=== PATIENT | male | born 1965 | race Caucasian/White ===

== ENCOUNTER → 2017-12-14 14:01 | Outpatient (CLI) | payer MEDICARE | END | disposition home or self-care (01) | LOC: D.RAD 14:01 | DX: M54.5 Low back pain (principal); W19.XXXA Unspecified fall, initial encounter ==

== ENCOUNTER 2019-07-31 13:11 | Inpatient (IN) | payer MEDICARE ==
[~2019-07-31] VITALS: Ht 175.3 cm; Wt 95.3 kg
[2019-07-31] MEDS ORDERED: LASIX40 MG PO (13:19)
[2019-07-31] MEDS ORDERED: GLUCOPHAGE1000 MG PO (13:19)
[2019-07-31] MEDS ORDERED: LEVOXYL100 MCG PO (13:20)
[2019-07-31] MEDS ORDERED: NEURONTIN600 MG PO (13:20)
[2019-07-31] MEDS ORDERED: ROPINIROLE HCL1 MG PO (13:20)
[2019-07-31] MEDS ORDERED: COUMADIN2 MG PO (13:20)
[2019-07-31] MEDS ORDERED: GLIPIZIDE10 MG PO (13:21)
[2019-07-31 13:57] LABS: BASOPHILS 0.1 % (0-2); EOSINOPHILS 0.3 % (0-7); HEMATOCRIT 46.1 % (42.0-54.0); HEMOGLOBIN 16.2 g/dL (13.5-17.5); IMMATURE GRANULOCYTES 0.4 % (0-5); MCH 29.7 pg (26.0-34.0); MCHC 35.1 g/dL (31.0-37.0); MCV 84.6 fL (80.0-100.0); MEAN PLATELET VOLUME 9.1 fL (7.4-10.4); MONOCYTES 7.4 % (2-11); NEUTROPHILS 81.8 % (40-80); PLATELET COUNT 169 10x3/uL (130-400); RBC 5.45 10x6/uL (4.20-6.10); RDW 13.7 % (11.5-14.5); WBC 10.6 10x3/uL (4.8-10.8)
[2019-07-31 14:07] LABS: APTT 86.2 SECONDS (22.8-39.4); CALC OSMOLALITY 282 mosm/kg (275-300); CHLORIDE - SERUM 101 mmol/L (98-107); CREATININE - SERUM 1.1 mg/dL (0.6-1.3); GLUCOSE 349 mg/dL (74-106); POTASSIUM - SERUM 4.5 mmol/L (3.5-5.1); SODIUM 135 mmol/L (136-145); UREA NITROGEN 9 mg/dL (7-18); eGFR NON AFRICAN AMERICAN 74 mL/min (90-120)
[2019-07-31 14:17] LABS: INR 6.25 (0.85-1.17); PROTIME 53.8 SECONDS (11.6-15.0)
[2019-07-31 14:24] LABS: ALBUMIN 2.6 g/dL (3.4-5.0); ALKALINE PHOSPHATASE 105 U/L (30-120); ALT (SGPT) 7 U/L (10-68); BILIRUBIN - TOTAL 0.58 mg/dL (0.2-1.3); CKMB 0.2 U/L (0.0-3.6); CREATINE KINASE 17 UL (21-232); PRO BNP 67 pg/mL (0-125)
[2019-07-31 14:28] LABS: TROPONIN-I < 0.017 ng/mL (0.000-0.060)
--- NOTE | 2019-07-31 16:01 | NUR ---
PT TRANSPORTED TO CT AT THIS TIME.
[2019-07-31 16:53] VITALS: BP 137/66
--- NOTE | 2019-07-31 18:43 | NUR ---
U\S AT BEDSIDE AT THIS TIME.
[2019-07-31 18:53] LABS: BILIRUBIN NEGATIVE (NEGATIVE); GLUCOSE 1000 mg/dL (NEGATIVE); KETONE LARGE mg/dL (NEGATIVE); NITRITE NEGATIVE (NEGATIVE); UROBILINOGEN NORMAL (NORMAL)
[2019-07-31 18:54] LABS: BACTERIA FEW /hpf (NEGATIVE); EPITHELIAL CELLS OCC /hpf (0-5); GRANULAR CAST OCC /lpf (NONE SEEN); RED CELLS - URINE 0-5 /hpf (0-5); WHITE CELLS - URINE 0-5 /hpf (NEGATIVE)
[2019-07-31 18:57] LABS: UDS - AMPHET NEGATIVE QUAL (NEGATIVE); UDS - BARB NEGATIVE QUAL (NEGATIVE); UDS - BENZO NEGATIVE QUAL (NEGATIVE); UDS - COCAINE NEGATIVE QUAL (NEGATIVE); UDS - OPIATE NEGATIVE QUAL (NEGATIVE); UDS - PCP NEGATIVE QUAL (NEGATIVE); UDS - THC NEGATIVE QUAL (NEGATIVE)
[2019-07-31 19:05] VITALS: BP 115/73
--- NOTE | 2019-07-31 19:43 | NUR ---
ROCEPHIN STOPPED AT THIS TIME.
[2019-07-31 20:00] VITALS: BP 118/57
--- NOTE | 2019-07-31 20:00 | NUR ---
RECEIVED PT TO FLOOR FROM ER VIA STRETCHER. PT AMBULATED, UNSTEADILY, FROM STRETCHER TO BED. DYSPENIC ON EXERTION. LUNG SOUNDS ARE DIMINISHED. 2L/NC. REVIEWED HISTORY AND HOME MEDS. PT C/O OF NAUSEA. GAVE ZOFRAN. SET UP IV PUMP TO INFUSE IVPB AZITHROMYCIN, ROCEPHIN WAS GIVEN IN ER. PLACED SCD'S ON PT. PT ON WAITING LIST FOR TELEMETRY. NO OTHER NEEDS. WILL CONTINUE TO MONITOR.
[2019-07-31] MEDS ORDERED: LISINOPRIL5 MG PO (20:08)
[2019-07-31] MEDS ORDERED: AMERGE1 MG PO (20:14)
[2019-07-31] MEDS ORDERED: ALDACTONE25 MG PO (20:17)
[2019-07-31] MEDS ORDERED: PROTONIX40 MG PO (20:18)
[2019-07-31 23:33] VITALS: BP 118/57; BMI 31.0
[2019-08-01] VITALS: BP 95/62
[2019-08-01 04:00] VITALS: BP 129/80
--- NOTE | 2019-08-01 07:00 | NUR ---
LABS BEING DRAWN. PATIENT IS WITHOUT DISTRESS.CALL LIGHT IN REACH
[2019-08-01 07:01] LABS: BASOPHILS 0.1 % (0-2); EOSINOPHILS 0.2 % (0-7); HEMATOCRIT 39.1 % (42.0-54.0); HEMOGLOBIN 13.6 g/dL (13.5-17.5); IMMATURE GRANULOCYTES 0.2 % (0-5); LYMPHOCYTES 20.2 % (15-50); MCH 29.2 pg (26.0-34.0); MCHC 34.8 g/dL (31.0-37.0); MCV 83.9 fL (80.0-100.0); MONOCYTES 10.4 % (2-11); NEUTROPHILS 68.9 % (40-80); PLATELET COUNT 172 10x3/uL (130-400); RBC 4.66 10x6/uL (4.20-6.10); RDW 13.3 % (11.5-14.5); WBC 8.2 10x3/uL (4.8-10.8)
[2019-08-01 07:43] LABS: CALC OSMOLALITY 290 mosm/kg (275-300); CALCIUM 7.9 mg/dL (8.5-10.1); CARBON DIOXIDE 24.1 mmol/L (21.0-32.0); CHLORIDE - SERUM 105 mmol/L (98-107); GLUCOSE 310 mg/dL (74-106); POTASSIUM - SERUM 4.4 mmol/L (3.5-5.1); SODIUM 138 mmol/L (136-145); eGFR NON AFRICAN AMERICAN 83 mL/min (90-120)
[2019-08-01 07:44] LABS: UREA NITROGEN 20 mg/dL (7-18)
[2019-08-01 08:39] VITALS: BP 121/77
--- NOTE | 2019-08-01 09:00 | NUR ---
ASSESSMENT PER FLOW SHEET. PATIENT IS WITHOUT DISTRESS.DENIES NEEDS.CALL LIGHT IN REACH
[2019-08-01 12:53] VITALS: BP 132/76
[2019-08-01 13:37] VITALS: Ht 175.3 cm; Wt 95.3 kg
[2019-08-01 16:01] VITALS: BP 132/74
[2019-08-01 19:10] LABS: INR 3.81 (0.85-1.17); PROTIME 36.8 SECONDS (11.6-15.0)
--- NOTE | 2019-08-01 19:28 | NUR ---
PT SITTING UP IN BED WITH EYES OPEN CURRENTLY RCVING BREATHING TREATMENT. NO S/S OF DISTRESS NOTED AT THIS TIME. IV LOCATED TO LEFT AC CURRENTLY SL. DENIES NEEDS AT THIS TIME, WILL CONT TO MONITOR.
[2019-08-01 20:00] VITALS: BP 126/64
--- NOTE | 2019-08-01 23:30 | NUR ---
PT COMPLAINS OF CHRONIC BACK PAIN AND DIFFICULTY GETTING COMFORTABLE. EGG CRATE MATTRESS LAID OVER BED, PT REPORTS RELIEF. WILL CONTINUE TO MONITOR.
[2019-08-02] VITALS: BP 107/71
[2019-08-02 04:00] VITALS: BP 118/70
--- NOTE | 2019-08-02 04:00 | NUR ---
MONITOR STATION REPORTS NO AVAILABLE TELEMETRY FOR THIS PT.
[2019-08-02 07:19] LABS: BASOPHILS 0.1 % (0-2); EOSINOPHILS 0 % (0-7); HEMATOCRIT 37.9 % (42.0-54.0); HEMOGLOBIN 13.2 g/dL (13.5-17.5); IMMATURE GRANULOCYTES 0.5 % (0-5); LYMPHOCYTES 13.6 % (15-50); MCH 29.1 pg (26.0-34.0); MCHC 34.8 g/dL (31.0-37.0); MCV 83.7 fL (80.0-100.0); MEAN PLATELET VOLUME 9.5 fL (7.4-10.4); MONOCYTES 2.8 % (2-11); RBC 4.53 10x6/uL (4.20-6.10); RDW 13.2 % (11.5-14.5); WBC 7.5 10x3/uL (4.8-10.8)
[2019-08-02 07:32] LABS: ALBUMIN 2.7 g/dL (3.4-5.0); ANION GAP 17.3 mmol/L (8-16); BILIRUBIN - TOTAL 0.46 mg/dL (0.2-1.3); CALCIUM 8.5 mg/dL (8.5-10.1); CARBON DIOXIDE 24.2 mmol/L (21.0-32.0); CREATININE - SERUM 1.1 mg/dL (0.6-1.3); POTASSIUM - SERUM 4.5 mmol/L (3.5-5.1); PROTEIN - SERUM 6.4 g/dL (6.4-8.2)
[2019-08-02 07:44] LABS: PLATELET COUNT 247 10x3/uL (130-400)
[2019-08-02 08:00] LABS: INR 2.81 (0.85-1.17); PROTIME 29.1 SECONDS (11.6-15.0)
[2019-08-02 08:41] VITALS: BP 113/73
[2019-08-02 13:03] VITALS: BP 110/65
[2019-08-02] MEDS ORDERED: PREDNISONE10 MG PO (13:05)
[2019-08-02] MEDS ORDERED: FLUTICASONE PRO16 GM NASAL (13:05)
[2019-08-02] MEDS ORDERED: MUCINEX DM ER1 EAC1 PO (13:05)
[2019-08-02] MEDS ORDERED: Tessalon Perle PO (13:05)
[2019-08-02] MEDS ORDERED: OMNICEF300 MG PO (13:05)
[2019-08-02] MEDS ORDERED: FLORAJEN3 CAPS460 MG PO (13:05)
[2019-08-02] MEDS ORDERED: ALBUTEROL2.5 MG/3 M INH (13:05)
[2019-08-02] MEDS ORDERED: ZITHROMAX500 MG PO (13:05)
[2019-08-02] MEDS ORDERED: SINGULAIR10 MG PO (13:05)
[2019-08-02] MEDS ORDERED: VENTOLIN HFA [SP8 GM INH (14:03)
--- NOTE | 2019-08-02 14:07 | MORECARE ---
CASE MANAGEMENT DISCHARGE SUMMARY PATIENT: JEANETTE ALEMAN UNIT: [id number] ADM DATE: 07/31/19 AGE: 54 : 67 SEX: M ROOM/BED: D.2224 AUTHOR: RANJAN BUITRAGO PHYSICIAN: REFERRING PHYSICIAN: TERRANCE VASQUEZ MD DATE OF SERVICE: 08/02/19 Discharge Plan Patient Name: JEANETTE ALEMAN [facility] [facility] 1965 Planned Disposition: Home Anticipated Discharge Date: 08/02/19 Discharge Date: Expected LOS: 2 Initial Reviewer: [id number] Initial Review Date: 07/31/2019 Generated: 08/02/19 3:06 pm DCPIA - Discharge Planning Initial Assessment Updated by [email or web address]: Mary Rojas on 08/02/19 2:05 pm * Is the patient Alert and Oriented? Yes * How many steps to enter\exit or inside your home? 2/0 * PCP Dr. Jase Fontenot * Pharmacy [facility] * Preadmission Environment Home with Family * ADLs Independent * Equipment None * List name and contact numbers for known caregivers / representatives who currently or will assist patient after discharge: Viri Alvarez - [phone] * Verbal permission to speak to the caregivers and representatives has been obtained from the patient. Yes * Community resources currently utilized None * Additional services required to return to the preadmission environment? No * Can the patient safely return to the preadmission environment? Yes * Has this patient been hospitalized within the prior 30 days at any hospital? No Patient Name: JEANETTE ALEMAN Page [phone] at 1407 All edits/amendments must be made on the electronic document DICTATION DATE: 08/02/19 1406 ONLINE MERCHANDISING SPECIALIST: THIERRY 08/02/19 1406 RPT#: [id number] DC DATE: STATUS: ADM IN [facility] [address] [place] [address] END OF REPORT
--- NOTE | 2019-08-02 14:16 | MORECARE ---
CASE MANAGEMENT DISCHARGE SUMMARY PATIENT: JEANETTE ALEMAN UNIT: [id number] ADM DATE: 07/31/19 AGE: 54 : 67 SEX: M ROOM/BED: D.2224 AUTHOR: MINNA,DOC PHYSICIAN: REFERRING PHYSICIAN: TERRANCE VASQUEZ MD DATE OF SERVICE: 08/02/19 Discharge Plan Patient Name: JEANETTE ALEMAN Facility: [facility]:[place] : 1965 Planned Disposition: Home Anticipated Discharge Date: 08/02/19 Discharge Date: Expected LOS: 2 Initial Reviewer: [email or web address] Initial Review Date: 07/31/2019 Generated: 08/02/19 3:15 pm Comments DCP- Discharge Planning Updated by [email or web address]: Mary Rojas on 08/02/19 1:[address] Patient Name: JEANETTE ALEMAN Admission Status: ER Accout number: [id number] Admission Date: 07-31-2019 : 1965 Admission Diagnosis: Attending: TERRANCE VASQUEZ Current LOS: 2 Anticipated DC Date: 08-02-2019 Planned Disposition: Home Primary Insurance: MEDICARE A & B Discharge Planning Comments: CM met with patient to discuss discharge planning/needs. Patient states he is living in a camper here in [place]. States his home address is in [place]. States he is in the process of trying to move here. States he left his nebulizer in [place]. He is in the process of getting everything "switched over to [place]." He is living with his girlfriend, Viri, and she will pick him up. Declines need for home health or DME. Discharging home today. Web Operations Manager: Mary Rojas DCPIA - Discharge Planning Initial Assessment Updated by [email or web address]: Mary Rojas on 08/02/19 2:05 pm * Is the patient Alert and Oriented? Yes * How many steps to enter\\exit or inside your home? 2/0 * PCP Dr. Jase Fontenot * Pharmacy [facility] * Preadmission Environment Home with Family * ADLs Independent * Equipment None * List name and contact numbers for known caregivers / representatives who currently or will assist patient after discharge: Viri Alvarez [phone] * Verbal permission to speak to the caregivers and representatives has been obtained from the patient. Yes * Community resources currently utilized None * Additional services required to return to the preadmission environment? No * Can the patient safely return to the preadmission environment? Yes * Has this patient been hospitalized within the prior 30 days at any hospital? No Last DP export: 08/02/19 1:07 pm Patient Name: JEANETTE ALEMAN Page [phone] at 1416 All edits/amendments must be made on the electronic document DICTATION DATE: 08/02/19 1415 PELLET MACHINE OPERATOR: THIERRY 08/02/19 1415 RPT#: [id number] DC DATE: STATUS: ADM IN [facility] [address] [place] [address] END OF REPORT
[2019-08-02 18:02] VITALS: BP 135/66
[2019-08-02 19:37] LABS: ANION GAP 14.9 mmol/L (8-16); CARBON DIOXIDE 21.3 mmol/L (21.0-32.0); CREATININE - SERUM 1.3 mg/dL (0.6-1.3); POTASSIUM - SERUM 4.2 mmol/L (3.5-5.1)
[2019-08-02 23:03] LABS: BILIRUBIN NEGATIVE (NEGATIVE); GLUCOSE 1000 mg/dL (NEGATIVE); KETONE NEGATIVE (NEGATIVE); NITRITE NEGATIVE (NEGATIVE); UROBILINOGEN NORMAL (NORMAL)
--- NOTE | 2019-08-02 23:39 | NUR ---
PT SITTING UP ON SIDE OF BED TALK. NO SIGNS OR SYMTPOMS OF DISTRESS NOTED. RESPIARTIONS EVEN AND UNLABORED. FAMILY IS AT BEDSIDE. AWAKE ALERT AND ORIENTED x4. URINE SAMPLE COLLECTED. PT STATES LAST BOWELL MOVMENT WAS TODAY. BOWELL SOUNDS ACTIVE x4. CALL LIGHT WITH IN REACH AND BED IS IN LOWEST POSITION. PT ENCOURAGED TO CALL FOR HELP. WILL CONINTUE TO MONITOR
[2019-08-03 04:00] VITALS: BP 104/74
[2019-08-03 06:46] LABS: PROTIME 34.4 SECONDS (11.6-15.0)
[2019-08-03 07:02] LABS: ALBUMIN 2.4 g/dL (3.4-5.0); ANION GAP 12.7 mmol/L (8-16); BILIRUBIN - TOTAL 0.24 mg/dL (0.2-1.3); CALCIUM 8.3 mg/dL (8.5-10.1); CARBON DIOXIDE 25.4 mmol/L (21.0-32.0); CREATININE - SERUM 1.1 mg/dL (0.6-1.3); POTASSIUM - SERUM 4.1 mmol/L (3.5-5.1); PROTEIN - SERUM 5.7 g/dL (6.4-8.2)
--- NOTE | 2019-08-03 07:10 | NUR ---
PT RESTING IN BED. NO SIGNS OF DISTRESS. IV TO LEFT AC PATENT NO REDNESS OR TENDERNESS. DENIES ANY FURTHER NEED AT THIS TIME. CALL LIGHT IN REACH. BED LOW POSTIION. FAMILY AT BEDSIDE AT THIS TIME.
[2019-08-03 07:29] LABS: INR 3.49 (0.85-1.17)
[2019-08-03 08:18] LABS: BASOPHILS 0.3 % (0-2); EOSINOPHILS 0 % (0-7); HEMATOCRIT 34.3 % (42.0-54.0); HEMOGLOBIN 11.9 g/dL (13.5-17.5); IMMATURE GRANULOCYTES 1.4 % (0-5); LYMPHOCYTES 17.2 % (15-50); MCH 28.8 pg (26.0-34.0); MCHC 34.7 g/dL (31.0-37.0); MCV 83.1 fL (80.0-100.0); MEAN PLATELET VOLUME 9.5 fL (7.4-10.4); MONOCYTES 10.1 % (2-11); PLATELET COUNT 281 10x3/uL (130-400); RBC 4.13 10x6/uL (4.20-6.10); RDW 13.3 % (11.5-14.5)
--- NOTE | 2019-08-03 08:27 | MORECARE ---
CASE MANAGEMENT DISCHARGE SUMMARY PATIENT: JEANETTE ALEMAN UNIT: [id number] ADM DATE: 07/31/19 AGE: 54 : 67 SEX: M ROOM/BED: D.2224 AUTHOR: MINNA,DOC PHYSICIAN: REFERRING PHYSICIAN: TERRANCE VASQUEZ MD DATE OF SERVICE: 08/03/19 Discharge Plan Patient Name: JEANETTE ALEMAN Facility: [facility]:[place] : 1965 Planned Disposition: Home Anticipated Discharge Date: 08/02/19 Discharge Date: Expected LOS: 2 Initial Reviewer: [email or web address] Initial Review Date: 07/31/2019 Generated: 08/03/19 9:26 am DCP- Discharge Planning Updated by [email or web address]: Mary Rojas on 08/02/19 1:[address] Patient Name: JEANETTE ALEMAN Admission Status: ER Accout number: [id number] Admission Date: 07-31-2019 : 1965 Admission Diagnosis: Attending: TERRANCE VASQUEZ Current LOS: 2 Anticipated DC Date: 08-02-2019 Planned Disposition: Home Primary Insurance: MEDICARE A & B Discharge Planning Comments: CM met with patient to discuss discharge planning/needs. Patient states he is living in a camper here in [place]. States his home address is in [place]. States he is in the process of trying to move here. States he left his nebulizer in [place]. He is in the process of getting everything "switched over to [place]." He is living with his girlfriend, Viri, and she will pick him up. Declines need for home health or DME. Discharging home today. Graduate Nurse: Mary Rojas DCPIA - Discharge Planning Initial Assessment Updated by [email or web address]: Mary Rojas on 08/02/19 2:05 pm * Is the patient Alert and Oriented? Yes * How many steps to enter\\exit or inside your home? 2/0 * PCP Dr. Jase Fontenot * Pharmacy [facility] * Preadmission Environment Home with Family * ADLs Independent * Equipment None * List name and contact numbers for known caregivers / representatives who currently or will assist patient after discharge: Viri Alvarez [phone] * Verbal permission to speak to the caregivers and representatives has been obtained from the patient. Yes * Community resources currently utilized None * Additional services required to return to the preadmission environment? No * Can the patient safely return to the preadmission environment? Yes * Has this patient been hospitalized within the prior 30 days at any hospital? No External Providers External Provider: Shad Calderon Contact Date: Service Request Date: Service Type: Resolution: Reviewer: Comments: Last DP export: 08/02/19 1:16 pm Patient Name: JEANETTE ALEMAN Page [phone] at 0827 All edits/amendments must be made on the electronic document DICTATION DATE: 08/03/19825 ONLINE ADVERTISING DIRECTOR: THIERRY 08/03/19825 RPT#: [id number] DC DATE: STATUS: ADM IN [facility] [address] [place] [address] END OF REPORT
[2019-08-03 09:18] VITALS: BP 114/69
--- NOTE | 2019-08-03 09:22 | MORECARE ---
CASE MANAGEMENT DISCHARGE SUMMARY PATIENT: JEANETTE ALEMAN UNIT: [id number] ADM DATE: 07/31/19 AGE: 54 : 67 SEX: M ROOM/BED: D.2224 AUTHOR: MINNA,DOC PHYSICIAN: REFERRING PHYSICIAN: TERRANCE VASQUEZ MD DATE OF SERVICE: 08/03/19 Discharge Plan Patient Name: JEANETTE ALEMAN Facility: [facility]:[place] : 1965 Planned Disposition: Home Anticipated Discharge Date: 08/02/19 Discharge Date: Expected LOS: 2 Initial Reviewer: [email or web address] Initial Review Date: 07/31/2019 Generated: 08/03/19 10:22 am Comments DCP- Discharge Planning Updated by [email or web address]: Mary Rojas on 08/03/19 8:[address] Oxygen saturation is 96% at rest and 94% with exertion on room air. He does not qualify for home oxygen. I have ordered his nebulizer and duo-neb from [facility] and notified Sandro that he is discharging today. DCP- Discharge Planning Updated by [email or web address]: Mary Rojas on 08/02/19 1:[address] Patient Name: JEANETTE ALEMAN Admission Status: ER Accout number: [id number] Admission Date: 07-31-2019 : 1965 Admission Diagnosis: Attending: TERRANCE VASQUEZ Current LOS: 2 Anticipated DC Date: 08-02-2019 Planned Disposition: Home Primary Insurance: MEDICARE A & B Discharge Planning Comments: CM met with patient to discuss discharge planning/needs. Patient states he is living in a camper here in [place]. States his home address is in [place]. States he is in the process of trying to move here. States he left his nebulizer in [place]. He is in the process of getting everything "switched over to [place]." He is living with his girlfriend, Viri, and she will pick him up. Declines need for home health or DME. Discharging home today. Parts Designer: Mary Rojas DCPIA - Discharge Planning Initial Assessment Updated by [email or web address]: Mary Rojas on 08/02/19 2:05 pm * Is the patient Alert and Oriented? Yes * How many steps to enter\\exit or inside your home? 2/0 * PCP Dr. Jase Fontenot * Pharmacy [facility] * Preadmission Environment Home with Family * ADLs Independent * Equipment None * List name and contact numbers for known caregivers / representatives who currently or will assist patient after discharge: Viri Alvarez - [phone] * Verbal permission to speak to the caregivers and representatives has been obtained from the patient. Yes * Community resources currently utilized None * Additional services required to return to the preadmission environment? No * Can the patient safely return to the preadmission environment? Yes * Has this patient been hospitalized within the prior 30 days at any hospital? No Last DP export: 08/03/19 7:27 am Patient Name: JEANETTE ALEMAN Page 10190 at 0922 All edits/amendments must be made on the electronic document DICTATION DATE: 08/03/19921 FRONT DESK HOST: THIERRY 08/03/19921 RPT#: [id number] DC DATE: STATUS: ADM IN [facility] [address] [place] [address] END OF REPORT
[2019-08-03 10:10] LABS: IMMUNOGLOBULIN A 335 mg/dL (90-386); IMMUNOGLOBULIN G 828 mg/dL (700-1600)
--- NOTE | 2019-08-03 10:12 | MORECARE ---
CASE MANAGEMENT DISCHARGE SUMMARY PATIENT: JEANETTE ALEMAN UNIT: [id number] ADM DATE: 07/31/19 AGE: 54 : 67 SEX: M ROOM/BED: D.2224 AUTHOR: MINNA,DOC PHYSICIAN: REFERRING PHYSICIAN: TERRANCE VASQUEZ MD DATE OF SERVICE: 08/03/19 Discharge Plan Patient Name: JEANETTE ALEMAN Facility: [facility]:[place] : 1965 Planned Disposition: Home Anticipated Discharge Date: 08/02/19 Discharge Date: Expected LOS: 2 Initial Reviewer: [email or web address] Initial Review Date: 07/31/2019 Generated: 08/03/19 11:11 am Comments DCP- Discharge Planning Updated by [email or web address]: Mary Rojas on 08/03/19 9:[address] [facility] is delivering his nebulizer to the hospital. Sandro states his nebulizer medicine will be delivered tomorrow. They have contacted patient's girlfriend in the room and informed them. Home today. DCP- Discharge Planning Updated by [id number]: Mary Rojas on 08/03/19 8:[address] Oxygen saturation is 96% at rest and 94% with exertion on room air. He does not qualify for home oxygen. I have ordered his nebulizer and duo-neb from [facility] and notified Sandro that he is discharging today. DCP- Discharge Planning Updated by [id number]: Mary Rojas on 08/02/19 1:[address] Patient Name: JEANETTE ALEMAN Admission Status: ER Accout number: [id number] Admission Date: 07-31-2019 : 1965 Admission Diagnosis: Attending: TERRANCE VASQUEZ Current LOS: 2 Anticipated DC Date: 08-02-2019 Planned Disposition: Home Primary Insurance: MEDICARE A & B Discharge Planning Comments: CM met with patient to discuss discharge planning/needs. Patient states he is living in a camper here in [place]. States his home address is in [place]. States he is in the process of trying to move here. States he left his nebulizer in [place]. He is in the process of getting everything "switched over to [place]." He is living with his girlfriend, Viri, and she will pick him up. Declines need for home health or DME. Discharging home today. Supervisor [employer]: Mary Rojas DCPIA - Discharge Planning Initial Assessment Updated by [email or web address]: Mary Rojas on 08/02/19 2:05 pm * Is the patient Alert and Oriented? Yes * How many steps to enter\\exit or inside your home? 2/0 * PCP Dr. Jase Fontenot * Pharmacy [facility] * Preadmission Environment Home with Family * ADLs Independent * Equipment None * List name and contact numbers for known caregivers / representatives who currently or will assist patient after discharge: Viri Alvarez [phone] * Verbal permission to speak to the caregivers and representatives has been obtained from the patient. Yes * Community resources currently utilized None * Additional services required to return to the preadmission environment? No * Can the patient safely return to the preadmission environment? Yes * Has this patient been hospitalized within the prior 30 days at any hospital? No Coverage Notice Reviewer: [id number] Rojas Notice Issued Date-Time: 08/03/2019 10:02 Notice Type: IM Discharge Notice Notice Delivered To: Patient Relationship to Patient: Self Chimney Supervisor Brick Name: Delivery Method: HAND - Hand Delivered Sarah Days: Prior Verbal Notification: Recipient Understood Notice: Yes Recipient Signature: Yes Med Rec Note Co-signed by Attending: Coverage Notice Comment: IMM explained, signed, given, copy placed in MR Reviewer: [id number] Rojas Notice Issued Date-Time: 08/02/2019 13:50 Notice Type: Patient Choice Letter Notice Delivered To: Patient Relationship to Patient: Self Chimney Supervisor Brick Name: Delivery Method: HAND - Hand Delivered Sarah Days: Prior Verbal Notification: Recipient Understood Notice: Yes Recipient Signature: Yes Med Rec Note Co-signed by Attending: Coverage Notice Comment: FRANNY for Chelle Jack DP export: 08/03/19 8:22 am Patient Name: JEANETTE ALEMAN Page [phone] at 1012 All edits/amendments must be made on the electronic document DICTATION DATE: 08/03/19 1011 MANAGER LONG TERM CARE: THIERRY 08/03/19 1011 RPT#: [id number] DC DATE: STATUS: ADM IN [facility] [address] [place] [address] END OF REPORT
[2019-08-03] MEDS ORDERED: IPRAT-ALBUT 0.5-3 ML UPD (11:46)
[2019-08-03 13:06] VITALS: BP 108/59; BP 142/77
[2019-08-03] MEDS ORDERED: PROVENTIL/2.5 MG/3 M INH (13:07)
--- NOTE | 2019-08-03 15:00 | NUR ---
DISCHARGE INSTRCUTIONS GIVEN SEEMS TO UNDERSTAND INSTRUCITONS. IV OUT TIP INTACT. LEFT WITH FAMILY REFUSED AT WHEELCHAIR.
== END 2019-08-03 15:01 | disposition home or self-care (01) | DRG 637 ==
LOC: D.ER 13:11 → D.MS 17:55
PROVIDERS: Emergency Medicine; Family Medicine; Internal Medicine Pulmonary Disease; ADMIT Internal Medicine Nephrology; ATTEND Internal Medicine Nephrology
DX: E11.65 Type 2 diabetes mellitus with hyperglycemia (principal); J18.9 Pneumonia, unspecified organism; J96.01 Acute respiratory failure with hypoxia; J44.0 Chronic obstructive pulmonary disease with (acute) lower respiratory infection; J44.1 Chronic obstructive pulmonary disease with (acute) exacerbation; F17.203 Nicotine dependence unspecified, with withdrawal; K21.9 Gastro-esophageal reflux disease without esophagitis; K44.9 Diaphragmatic hernia without obstruction or gangrene; E66.9 Obesity, unspecified; Z68.31 Body mass index [BMI] 31.0-31.9, adult; E11.40 Type 2 diabetes mellitus with diabetic neuropathy, unspecified; T45.515A Adverse effect of anticoagulants, initial encounter; I10 Essential (primary) hypertension; E03.9 Hypothyroidism, unspecified